=== PATIENT | female | born 1985 | race Two or more races ===

== ENCOUNTER 2017-07-07 22:41 | Outpatient (CLI) | payer OTHER ==
[~2017-07-07] VITALS: Ht 170.2 cm; Wt 72.5 kg
== END 2017-07-07 23:51 | disposition home or self-care (01) ==
LOC: EDBD → LDOP 22:41 → EDBD 22:41 → LDOP 23:51
PROVIDERS: ATTEND Student in an Organized Health Care Education/Training Program
DX: O26.893 Other specified pregnancy related conditions, third trimester (principal); O36.8130 Decreased fetal movements, third trimester, not applicable or unspecified; O62.9 Abnormality of forces of labor, unspecified; R10.9 Unspecified abdominal pain; Z3A.38 38 weeks gestation of pregnancy
CPT/HCPCS: 59025; 99201; G0463

== ENCOUNTER 2017-07-09 08:36 | Outpatient (CLI) | payer OTHER ==
[~2017-07-09] VITALS: Ht 168.9 cm; Wt 72.7 kg
[2017-07-09 08:54] VITALS: BP 116/73
[2017-07-09] MEDS ORDERED: PREN1TAB60 PO (09:02)
== END 2017-07-09 10:20 | disposition home or self-care (01) ==
LOC: EDBD → LDOP 08:36
PROVIDERS: ATTEND Student in an Organized Health Care Education/Training Program
DX: O42.92 Full-term premature rupture of membranes, unspecified as to length of time between rupture and onset of labor (principal); Z3A.38 38 weeks gestation of pregnancy
CPT/HCPCS: 59025; 87210; 87808; 89060; 99211; G0463; Q0114

== ENCOUNTER 2017-07-11 06:03 | Inpatient (IN) | payer OTHER ==
[~2017-07-11] VITALS: Ht 170.2 cm; Wt 72.0 kg
[~2017-07-11 06:03] MED LIST: PREN1TAB60 PO
[2017-07-11] MEDS ORDERED: OXYTOCIN 30U/ 0.9% NaCL 500ML 500 ML IV ONE (06:23)
[2017-07-11] MEDS: LACTATED RINGERS 1,000 ML IV SCH ×4 (06:25→18:21)
[2017-07-11] MEDS ORDERED: NEWBORN KIT ONE (06:28)
[2017-07-11] MEDS ORDERED: OXYTOCIN 30U/ 0.9% NaCL 500ML 500 ML ONE (06:28)
[2017-07-11] MEDS ORDERED: FENTANYL PF 100 MCG/2ML IVPush PRN (06:30)
[2017-07-11] MEDS ORDERED: ONDANSETRON 2MG/ML, 2ML IVPush PRN (06:30)
[2017-07-11] MEDS ORDERED: METOCLOPRAMIDE 5 MG/ML, 2ML IVPush PRN (06:30)
[2017-07-11] MEDS ORDERED: FENTANYL PF 100 MCG/2ML IV PRN (06:30)
[2017-07-11] MEDS ORDERED: SODIUM CITRATE/CITRIC ACID 30 ML UDC PO PRN (06:30)
[2017-07-11] MEDS ORDERED: CALCIUM CARBONATE 500 MG TAB.CHEW PO PRN (06:30)
[2017-07-11] MEDS ORDERED: TERBUTALINE 1 MG/ML, 1ML IVPush PRN (06:30)
[2017-07-11] MEDS ORDERED: ALUMINUM/MAG/SIMETHICONE 30 ML UDC PO PRN (06:30)
[2017-07-11 06:33] VITALS: BP 102/64
[2017-07-11] MEDS ORDERED: FENTANYL PF 100 MCG/2ML ONE (07:22)
[2017-07-11] MEDS ORDERED: LIDOCAINE 1%, 20ML ONE (07:22)
[2017-07-11] MEDS ORDERED: MISOPROSTOL 200 MCG TABLET ONE (07:23)
[2017-07-11 07:42] LABS: HEMATOCRIT 36.6 % (34.6-47.8); HEMOGLOBIN 12.3 g/dL (11.7-16.4); WHITE BLOOD COUNT 11.7 x10^3/uL (3.4-10)
[2017-07-11] MEDS ORDERED: LIDOCAINE/PF 1.5%-EPI 1:200K, 30ML ONE (08:10)
[2017-07-11] MEDS ORDERED: FENTANYL/BUPIV./NS/PF 250 ML EPIDCONT ONE (08:11)
[2017-07-11] MEDS ORDERED: LIDOCAINE/MPF 2%-EPI 1:200K, 20 ML ONE (08:11)
[2017-07-11] MEDS: D5%-LACTATED RINGERS 1,000 ML IV SCH ×2 (08:49→14:23)
[2017-07-11] MEDS ORDERED: FENTANYL/BUPIV./NS/PF 250 ML EPIDCONT SCH (10:21)
[2017-07-11] MEDS ORDERED: LACTATED RINGERS 1,000 ML IVBOLUS PRN (10:30)
[2017-07-11] MEDS ORDERED: NALOXONE 0.4 MG/ML, 1ML IVPush PRN (10:30)
[2017-07-11] MEDS ORDERED: EPHEDRINE 50 MG/ML, 1ML IVPush PRN (10:30)
[2017-07-11] MEDS ORDERED: BISACODYL 10 MG SUPP PR PRN (13:00)
[2017-07-11] MEDS: OXYTOCIN 30U/ 0.9% NaCL 500ML 500 ML IV SCH ×2 (13:00→23:00)
[2017-07-11] MEDS ORDERED: GLYCERIN ADULT SUPP PR PRN (13:00)
[2017-07-11] MEDS ORDERED: ONDANSETRON 2MG/ML, 2ML IV PRN (13:00)
[2017-07-11] MEDS ORDERED: ACETAMINOPHEN 325 MG TABLET PO PRN (13:00)
[2017-07-11] MEDS ORDERED: OXYcodone/APAP 5/325MG TABLET PO PRN ×2 (13:00)
[2017-07-11] MEDS ORDERED: IBUPROFEN 800 MG TABLET PO PRN (13:00)
[2017-07-11] MEDS ORDERED: MISOPROSTOL 200 MCG TABLET PR PRN (13:00)
[2017-07-11] MEDS ORDERED: METHYLERGONOVINE 0.2 MG/ML IM PRN (13:00)
[2017-07-11] MEDS ORDERED: METOCLOPRAMIDE 5 MG/ML, 2ML IV PRN (13:00)
[2017-07-11] MEDS ORDERED: IBUPROFEN 600 MG TABLET ONE (13:14)
[2017-07-11] MEDS: IBUPROFEN 600 MG TABLET PO PRN ×2 (13:50→21:20)
[2017-07-11 15:19] VITALS: BP 109/63
[2017-07-11 17:15] VITALS: BP 115/77
[2017-07-11 20:15] VITALS: BP 112/73
[2017-07-11 21:02] LABS: HEMATOCRIT 34.6 % (34.6-47.8); HEMOGLOBIN 11.6 g/dL (11.7-16.4); WHITE BLOOD COUNT 14.7 x10^3/uL (3.4-10)
[2017-07-11] MEDS: DOCUSATE 100 MG CAPSULE PO PRN (21:20)
[2017-07-12 00:29] VITALS: BP 109/69
[2017-07-12 04:20] VITALS: BP 104/67
[2017-07-12] MEDS: IBUPROFEN 600 MG TABLET PO PRN ×2 (04:20→09:38)
[2017-07-12 07:30] VITALS: BP 112/74
[2017-07-12] MEDS: DOCUSATE 100 MG CAPSULE PO PRN (08:42)
[2017-07-12] MEDS: OXYTOCIN 30U/ 0.9% NaCL 500ML 500 ML IV SCH (09:00)
[2017-07-12] MEDS ORDERED: PRENATAL VIT/IRON/FA 1 EACH TABLET PO SCH (09:00)
[2017-07-12 12:00] VITALS: BP 110/70
[2017-07-12] MEDS ORDERED: IBUP200T48 PO (16:39)
[2017-07-12] MEDS ORDERED: OXYC-302 PO (16:43)
== END 2017-07-12 17:15 | disposition home or self-care (01) | DRG 775 ==
LOC: LDOP 06:03 → EDBD 06:20 → LDIP 06:20 → 2NW 14:52
PROVIDERS: ADMIT Student in an Organized Health Care Education/Training Program; ATTEND Student in an Organized Health Care Education/Training Program
PROC: 10E0XZZ Delivery of Products of Conception, External Approach (ICD-10-PCS; principal; 2017-07-11)
PROC: 0HQ9XZZ Repair Perineum Skin, External Approach (ICD-10-PCS; 2017-07-11)
PROC: 3E0R3BZ Introduction of Anesthetic Agent into Spinal Canal, Percutaneous Approach (ICD-10-PCS; 2017-07-11)
PROC: 00HU33Z Insertion of Infusion Device into Spinal Canal, Percutaneous Approach (ICD-10-PCS; 2017-07-11)
PROC: 10907ZC Drainage of Amniotic Fluid, Therapeutic from Products of Conception, Via Natural or Artificial Opening (ICD-10-PCS; 2017-07-11)
DX: O70.0 First degree perineal laceration during delivery (principal); Z68.38 Body mass index [BMI] 38.0-38.9, adult; Z37.0 Single live birth
CPT/HCPCS: 36415; 85025; 86850; 86900; J3010; J3490; J2590; J7120; J7121

== ENCOUNTER 2018-11-05 15:39 | Outpatient (CLI) | payer OTHER ==
[~2018-11-05] VITALS: Ht 165.1 cm; Wt 75.2 kg
[~2018-11-05 15:39] MED LIST changes: +IBUP200T49 PO; +OXYC-302 PO
[2018-11-05 15:44] VITALS: BP 123/71
== END 2018-11-05 16:40 | disposition home or self-care (01) ==
LOC: LDOP 15:39
PROVIDERS: ATTEND Student in an Organized Health Care Education/Training Program
DX: O36.8130 Decreased fetal movements, third trimester, not applicable or unspecified (principal); O24.410 Gestational diabetes mellitus in pregnancy, diet controlled; Z3A.38 38 weeks gestation of pregnancy
CPT/HCPCS: 59025; 82962; 99211; G0463